=== PATIENT | male | born 1990 | race Hispanic/Latino ===

== ENCOUNTER 2017-10-03 09:38 | Day surgery (SDC) | payer OTHER ==
[2017-10-03] MEDS ORDERED: Lactated Ringer's 1,000 ML IV ONE (11:07)
--- NOTE | 2017-10-03 11:08 | CP.SDSHP ---
Same Day Surgery H & P - History Proposed Procedure: EGD Pre-Op Diagnosis: GERD - Allergies Allergies: Allergies mold Allergy (Verified 10/03/17 10:36) REDNESS - Physical Exam General Appearance: NAD Vital Signs: Vital Signs 10/03/17 10:30 Temperature 97 F L Pulse Rate 89 Respiratory 20 Rate Blood Pressure 126/77 O2 Sat by Pulse 98 Oximetry Mental Status: Alert & Oriented x3 Neuro: WNL Heart: WNL Lungs: WNL GI: WNL - {Optional Preform as Required} Abdomen: WNL - Impression Pt. Evaluated Today:Candidate for Anesthesia & Procedure: Yes - Date & Time Date: 10/03/17 Time: 11:08 Short Stay Discharge - Short Stay Discharge Admitting Diagnosis/Reason for Visit: GERD Disposition: HOME/ ROUTINE
[2017-10-03] MEDS ORDERED: Propofol 10 mg/ml Inj (20 ML) ONE ×4 (11:19→11:31)
[2017-10-03 12:19] VITALS: TEMP 98.6
[2017-10-03 12:40] VITALS: BP 118/73; PULSE 78; O2SAT 96
[2017-10-03 14:17] VITALS: RESP 11
== END 2017-10-03 12:50 | disposition home or self-care (01) ==
LOC: C.ENDO 09:38
PROVIDERS: ATTEND Internal Medicine Gastroenterology
DX: K21.0 Gastro-esophageal reflux disease with esophagitis (principal); K29.70 Gastritis, unspecified, without bleeding
CPT/HCPCS: 43239; 88305; 88312; 88313; 88342; J2001; J2704; J3010; J7120